=== PATIENT | male | born 1940 | race Caucasian/White ===

== ENCOUNTER 2016-11-09 10:25 | Outpatient (CLI) | payer MEDICARE ==
[2016-11-09 10:56] LABS: Prothrombin Time 21.1 SEC (12.0-14.7)
== END 2016-11-09 10:26 | disposition home or self-care (01) ==
LOC: HPCALD 10:25
PROVIDERS: ATTEND Family Medicine
DX: I48.91 Unspecified atrial fibrillation (principal)
CPT/HCPCS: 36415; 85610

== ENCOUNTER 2016-11-13 08:53 | Emergency (ER) | payer MEDICARE ==
[2016-11-13] MEDS ORDERED: Ondansetron HCl/PF 4 MG/2 ML Vial ONE (09:31)
[2016-11-13 09:53] LABS: #Basophils 0.1 thou/uL (0.0-0.2); #Lymphocytes 1.2 thou/uL (1.20-3.40); #Monocytes 1.2 thou/uL (0.11-0.59); #Neutrophils 11.5 thou/uL (1.40-6.50); %Eosinophils 0.1 % (0.0-10.0); %Monocytes 8.4 % (0.0-10.0); Hematocrit 41.5 % (42.0-52.0); Mean Platelet Volume 7.4 fL (7.4-10.4); Red Blood Cell (RBC) Count 4.77 mill/uL (4.70-6.10)
[2016-11-13 10:06] LABS: Prothrombin Time 22.5 SEC (12.0-14.7)
[2016-11-13 10:07] LABS: ALT (SGPT) 14 U/L (0-55); AST (SGOT) 22 U/L (5-34); Alkaline Phosphatase 33 U/L (40-150); Anion Gap 15 mmol/L (10-20); BUN (Urea Nitrogen) 19 mg/dL (8.4-25.7); Bilirubin, Total 0.6 mg/dL (0.2-1.2); Calc. Creatinine Clearance 0 mL/min (70-130); Calcium 9.7 mg/dL (7.8-10.44); Carbon Dioxide 22 mmol/L (23-31); Chloride 108 mmol/L (98-107); Estimated GFR-MDRD 57; Globulin 2.7 g/dL (2.4-3.5); Protein, Total 6.9 g/dL (5.8-8.1)
[2016-11-13 10:09] LABS: Troponin I 0.019 ng/mL (< 0.028)
--- NOTE | 2016-11-13 10:19 | CT ---
CT BRAIN WITHOUT CONTRAST 11/13/2016 COMPARISON: No prior scan was available for comparison. TECHNIQUE: A noncontrast CT was done, following trauma, in this patient who is on blood thinners. He presents with dizziness and some vomiting. FINDINGS: No parenchymal bleeding or extraaxial hematoma was seen. The ventricles were normal in size for age and atrophy. There was no ventricular shift. Some minimal areas of deep white matter hypolucency suggest minimal chronic ischemic changes. The calvarium appeared intact. The sphenoid sinuses were clear. The mastoid air cells on the left were under-aerated, compared to the right, but this is pr obably chronic. IMPRESSION: No acute intracranial findings. POS: HOME
--- NOTE | 2016-11-13 10:45 | ERRECORD ---
[facility] EMERGENCY RECORD HPI WEAK-DIZZY (09:13 WMEI) CHIEF COMPLAINT: Patient presents for evaluation of dizziness, Patient presents for evaluation of lightheadedness, Denies mental status changes. HISTORIAN: History provided by patient. LOCATION: Symptoms are generalized. QUALITY: Patient is alert and oriented to person, place and time, Alpha coma score is 15. TIME COURSE: Gradual onset of symptoms, 1, days priror to arrival, accidentally fell hitting back of head with no loc awoke yesterday with dizziness and vomited x one dizziness and nausea persist. ASSOCIATED WITH: No associated fever, No associated gait disturbance, No associated headache, Associated with nausea. EXACERBATED BY: Patient's condition exacerbated by movement. RELIEVED BY: Patient's condition relieved by nothing. ROS (09:15 WMEI) CONSTITUTIONAL: Historian denies fatigue, denies fever. EYES: Historian denies eye pain, denies eye discharge. ENT: Historian denies rhinorrhea, denies sinus pain. CARDIOVASCULAR: Historian denies chest pain, no radiation. RESPIRATORY: Historian denies cough, denies shortness of breath. GI: Historian reports anorexia, reports nausea, reports vomiting. GENITOURINARY MALE: Historian denies dysuria, denies urinary urgency. MUSCULOSKELETAL: Historian denies joint stiffness, denies joint swelling. SKIN: Historian denies skin changes, denies skin lesions. NEUROLOGIC: Historian denies confusion, reports dizziness, denies focal weakness, denies mental status changes. ALLERGIC/IMMUNOLOGIC: Historian denies eczema, denies food allergies. PSYCHIATRIC: Historian denies alcohol abuse, denies drug abuse. PAST MEDICAL HISTORY MEDICAL HISTORY: Past medical history includes cardiac history, coronary artery disease, Treated with stent placement, Number of stents: 1. (09:18 WMEI) Past medical history includes cardiac history, coronary artery disease, Past medical history includes history of hyperlipidemia, Past medical history includes history of hypertension. VERIFIED 11/13/16. (09:30 LGIB) MALE SURGICAL HISTORY: cardiac stent, Dental surgery, Surgical history of hernia repair. VERIFIED 11/13/16. (09:30 LGIB) PSYCHIATRIC HISTORY: No previous psychiatric history. (09:30 LGIB) SOCIAL HISTORY: Patient denies alcohol use, Patient denies drug &a-1R&a+25V*p+0X*a0302C*c202B*c15G*c2P*p-0X&a-25V&a+1R Name: Clayton Pierce : 1940 M76 MedRec: [id number] AcctNum: [id number] Prepared: Sat Nov 13, 2016 19:52 by Interface Page 1 of 4 pMD [facility] RECORD use, Patient has no smoking history. (09:30 LGIB) KNOWN ALLERGIES No Known Allergies (Unconfirmed) No Known Drug Allergies (Unconfirmed) CURRENT MEDICATIONS (09:10 AHOO) warfarin: TABLET : Strength - 5 mg : ORAL Patient Dose: 10 mg Oral once a day. lisinopril: TABLET : Strength - 10 mg : ORAL Patient Dose: 10 mg Oral once a day. meTOPROLOL tartrate: TABLET : Strength - 25 mg : ORAL Patient Dose: 25 mg Oral 2 times a day. atorvastatin: TABLET : Strength - 80 mg : ORAL Patient Dose: 80 mg Oral once a day. fenofibrate: CAPSULE : Strength - 50 mg : ORAL Patient Dose: 80 mg Oral once a day. aspirin: TABLET : Strength - 325 mg : ORAL Patient Dose: 325 mg Oral once a day. Biotene: CAPSULE : Strength - 25,000 unit-30 unit : ORAL Patient Dose: 1000 mg Oral once a day (in the morning). VITAL SIGNS VITAL SIGNS: BP: 129/71, Pulse: 90, Resp: 16 (Non-Labored), O2 sat: 98 on Room Air, Time: 11/13/2016 09:06. (09:06 LGIB) Temp: 97.9 (Oral), Time: 11/13/2016 09:10. (09:10 AHOO) Pain: 0, Time: 11/13/2016 09:09. (09:09 AHOO) BP: 115/69, Pulse: 76, Resp: 20, Pain: 0, O2 sat: 100 on Room Air, Time: 11/13/2016 09:54. (09:54 AHOO) BP: 135/77, Pulse: 73, Resp: 22, Temp: 98.2 (Oral), Pain: 0, O2 sat: 100 on Room Air, Time: 11/13/2016 10:23. (10:23 AHOO) PHYSICAL EXAM (09:17 WMEI) CONSTITUTIONAL: Vital signs reviewed, Patient appears non toxic, Patient appears pain free, Patient alert and oriented to person, place and time. HEAD: Head exam included findings of head atraumatic, normocephalic. EYES: Extraocular muscles intact, Conjunctiva normal, Sclera normal. ENT: Ear exam normal, Nose exam normal, Pharynx exam normal. NECK: Neck exam included findings of normal range of motion, Trachea midline. &a-1R&a+25V*p+0X*h1677S*c202B*c15G*c2P*p-0X&a-25V&a+1R Name: Clayton Pierce : 1940 M76 MedRec: [id number] AcctNum: [id number] Prepared: Chuy Nov 13, 2016 19:52 by Interface Page 2 of 4 pMD [facility] RECORD RESPIRATORY CHEST: Breath sounds clear, Chest exam included findings of chest movement symmetrical. CARDIOVASCULAR: Cardiovascular exam included findings of heart rate regular rate and rhythm, Heart sounds normal. ABDOMEN MALE: Abdominal exam included findings of abdomen nontender, Bowel sounds normal, no distension. BACK: Back exam included findings of normal inspection, range of motion normal. UPPER EXTREMITY: Upper extremity exam included findings of inspection normal, Range of motion normal, Motor strength normal. LOWER EXTREMITY: Lower extremity exam included findings of inspection normal, Range of motion normal, Motor strength normal. NEURO: Alpha coma scale 15, Neuro exam findings include patient oriented to person, place and time, Speech normal. LYMPHATIC: Lymphatic exam normal. PSYCHIATRIC: Psychiatric exam included findings of patient oriented to person place and time, Normal affect, Judgment normal, Insight normal. EKG INTERPRETATION (10:22 WMEI) 12 LEAD EKG INTERPRETATION: 12 lead EKG interpreted by Emergency Department Physician at time of study, 12 lead EKG shows normal sinus rhythm, Interpretation: normal EKG, non specific st changes. 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 MEDICATION ADMINISTRATION SUMMARY Drug Name: ondansetron HCl intravenous, Dose Ordered: 4 mg, Route: IV Push, Status: Given, Time: 09:41 11/13/2016, Drug Name: *sodium chloride 0.9 % intravenous, Dose Ordered: 500 mL, Route: IV Fluid Infusion, Status: Given, Time: 09:39 11/13/2016, *Additional information available in notes, Detailed record available in Medication Service section. PROBLEM LIST No recorded problems DIAGNOSIS (10:21 WMEI) FINAL: PRIMARY: dizziness. PRESCRIPTION No recorded prescriptions DISPOSITION PATIENT: Disposition Type: Discharge, Disposition: *Discharge Home. (10:21 WMEI) &a-1R&a+25V*p+0X*p1147O*c202B*c15G*c2P*p-0X&a-25V&a+1R Name: Clayton Pierce : 1940 M76 MedRec: [id number] AcctNum: [id number] Prepared: Chuy Nov 13, 2016 19:52 by Interface Page 3 of 4 pMD [facility] RECORD Patient left the department. (10:38 OO) Cummings: AHOO=ELZA Moya, January LGIB=FREDDY Zeng, Neeta WMEI=DO Menendez William &a-1R&a+25V*p+0X*x2538T*c202B*c15G*c2P*p-0X&a-25V&a+1R Name: Clayton Pierce : 1940 M76 MedRec: [id number] AcctNum: [id number] Prepared: Chuy Nov 13, 2016 19:52 by Interface Page 4 of 4 pMD MTDD
--- NOTE | 2016-11-13 10:51 | PICIS ---
[facility] EMERGENCY RECORD TRIAGE (09:02 LGIB) TRIAGE NOTES: DIZZINESS SINCE YESTERDAY. YESTERDAY WAS VOMITING. (09:02 LGIB) PATIENT: NAME: Clayton Pierce, AGE: 76, GENDER: male, : Sun 1940, TIME OF GREET: Sat Nov 13, 2016 08:54, PREFERRED LANGUAGE: Swazi, ETHNICITY: Not or , ECODE BILLING MAP: [facility], SSN: [id number], Zip Code: [address], KG WEIGHT: 71.21, PHONE: , , , PERSON ID: [id number], PAYMENT: [employer], PCP: MD Dominguez Kyle. (09:02 LGIB) COMPLAINT: DIZZINESS. (09:02 LGIB) ADMISSION: URGENCY: 3 Urgent, ADMISSION SOURCE: Home, TRANSPORT: CAR, BED: ER -03. (09:02 LGIB) SIRS SCORING: Heart Rate 55-109 (0), Temp range 96.8-101.1 (0), respiratory rate 12-24 (0), Total SIRS Score 0. (09:30 LGIB) PROVIDERS: TRIAGE NURSE: Neeta Zeng RN. (09:02 LGIB) PREVIOUS VISIT ALLERGIES: No Known Drug Allergies. (09:02 LGIB) No Known Drug Allergies. (09:30 LGIB) KNOWN ALLERGIES No Known Allergies (Unconfirmed) No Known Drug Allergies (Unconfirmed) CURRENT MEDICATIONS (09:10 OO) warfarin: TABLET : Strength - 5 mg : ORAL Patient Dose: 10 mg Oral once a day. lisinopril: TABLET : Strength - 10 mg : ORAL Patient Dose: 10 mg Oral once a day. meTOPROLOL tartrate: TABLET : Strength - 25 mg : ORAL Patient Dose: 25 mg Oral 2 times a day. atorvastatin: TABLET : Strength - 80 mg : ORAL Patient Dose: 80 mg Oral once a day. fenofibrate: CAPSULE : Strength - 50 mg : ORAL Patient Dose: 80 mg Oral once a day. aspirin: TABLET : Strength - 325 mg : ORAL Patient Dose: 325 mg Oral once a day. Biotene: CAPSULE : Strength - 25,000 unit-30 unit : ORAL Patient Dose: 1000 mg Oral once a day (in the morning). VITAL SIGNS VITAL SIGNS: BP: 129/71, Pulse: 90, Resp: 16 (Non-Labored), O2 sat: 98 on Room Air, Time: 11/13/2016 09:06. (09:06 LGIB) &a-1R&a+25V*p+0X*x1222W*c202B*c15G*c2P*p-0X&a-25V&a+1R Name: Clayton Pierce : 1940 M76 MedRec: [id number] AcctNum: [id number] Prepared: Sat Nov 13, 2016 19:52 by Interface Page 1 of 8 pMD [facility] EMERGENCY RECORD Temp: 97.9 (Oral), Time: 11/13/2016 09:10. (09:10 AHOO) Pain: 0, Time: 11/13/2016 09:09. (09:09 AHOO) BP: 115/69, Pulse: 76, Resp: 20, Pain: 0, O2 sat: 100 on Room Air, Time: 11/13/2016 09:54. (09:54 AHOO) BP: 135/77, Pulse: 73, Resp: 22, Temp: 98.2 (Oral), Pain: 0, O2 sat: 100 on Room Air, Time: 11/13/2016 10:23. (10:23 AHOO) NURSING ASSESSMENT: HEAD-TO-TOE (09:20 LGIB) CONSTITUTIONAL: Complex assessment performed, Patient arrives, via hospital wheelchair, Gait steady, History obtained from patient, Patient appears comfortable, Patient cooperative, Patient alert, Oriented to person, place and time, Skin warm, Skin dry, Skin normal in color, Mucous membranes pink, Mucous membranes, LIPS AND TONGUE SLIGHTLY DRY, Patient is well-groomed, Patient complains of DIZZINESS, REPORTING DIZZINES SINCE YESTERDAY MORNING. PT ALSO REPORTS VOMITING YESTERDAY. PT STATES HE DID HAVE AN EPISODE WHERE HE WAS UNSTEADY ON A LADDER, TRIED TO CATCH HIS BALANCE AND HIT HIS HEAD ON A PIECE OF TIN. DENIES FALLING TO THE GROUND. PT ON WARFARIN. AOX4, NAD. PAIN: Patient rates pain as 0 out of 10. SKIN: Skin assessment findings include skin warm, Skin dry, Skin normal in color. NEURO: Pupils equally round and reactive to light, Left pupil 3 mm in size, Right pupil 3 mm in size, Able to close eyes, Face symmetrical, Speech normal, Hand grasps equal, Upper extremity strength strong, Lower extremity strength strong, Associated with dizziness described as, feeling unsteady, UNSTEADY WHEN STANDING. ENT: Ear assessment findings include ear normal to inspection, Nasal assessment findings include nose normal to inspection, Mouth and throat assessment findings include mouth inspection normal. RESPIRATORY/CHEST: Breath sounds clear, Respiratory assessment findings include respiratory effort easy, Respirations regular, Conversing normally, Neck and chest exam findings include trachea midline, Chest expansion equal, Chest movement symmetrical, no signs of distress, no retractions noted, no cyanosis. CARDIOVASCULAR: Cardiovascular assessment findings include heart rate normal, Left radial pulse +3(easily palpated, considered normal), Right radial pulse +3(easily palpated, considered normal), Left dorsalis pedis pulse +3(easily palpated, considered normal), Right dorsalis pedis pulse +3(easily palpated, considered normal). ABDOMEN: Abdomen assessment findings include abdomen symmetrical, Abdomen soft, non-tender, Bowel sound normal, Associated with nausea, no associated vomiting, no associated diarrhea, Notes: NO VOMITING TODAY. SAFETY: Side rails up, Cart/Stretcher in lowest position, Call light within reach, Hospital ID band on. NURSING PROCEDURE: DISCHARGE NOTE (10:31 AHOO) DISCHARGE: Patient discharged to home, ambulating with &a-1R&a+25V*p+0X*o5488H*c202B*c15G*c2P*p-0X&a-25V&a+1R Name: Clayton Pierce : 1940 M76 MedRec: [id number] AcctNum: [id number] Prepared: Sat Nov 13, 2016 19:52 by Interface Page 2 of 8 pMD [facility] EMERGENCY RECORD walker, family driving, accompanied by other family member, Summary of Care printed/ provided, Transition record given to patient, Discharge instructions given to patient, Above person(s) verbalized understanding of discharge instructions and follow-up care, Patient treated and evaluated by physician. NURSING PROCEDURE: EKG CHART (09:12 AHOO) PATIENT IDENTIFIER: Patient actively involved in identification process, Patient's identity verified by patient stating name, Patient's identity verified by patient stating date, Patient's identity verified by hospital ID danitza. EKG: EKG indicated for DIZZINESS, 12 lead EKG performed on the left chest, done by TARA LEAL LVN, first EKG. FOLLOW-UP: After procedure, EKG for interpretation given to Dr. DR MENENDEZ. NURSING PROCEDURE: IV IV SITE 1: IV therapy indicated for hydration, IV therapy indicated for medication administration, IV established, to the right antecubital, using a 20 gauge catheter, in one attempt, Saline lock established, Flushed with normal saline (mls): 10, Labs drawn at time of placement, labeled in the presence of the patient and sent to lab. (09:40 LGIB) FOLLOW-UP SITE 1: After procedure, 2x2 dressing applied, After procedure, no drainage at IV site, After procedure, no swelling at IV site, After procedure, no redness at IV site, IV discontinued, due to patient being discharged, catheter intact. (10:28 AHOO) NURSING PROCEDURE: NURSE NOTES (10:09 LGIB) NURSES NOTES: Notes: NO NEEDS AT THIS TIME, IV FLUIDS INFUSING. NAD. NURSING PROCEDURE: TRANSPORT TO TESTS TRANSPORT TO TESTS: Patient transported to CT scan, via wheelchair, Accompanied by x-ray install and repair technician. (09:21 LGIB) FOLLOW-UP: After procedure, patient returned to emergency department. (09:35 LGIB) ORDER DETAILS Order Name: Cardiac Profile w/CKMB & Troponin - I, Status: Active, Time: 09:12 11/13/2016, User: JANNET, - Ordered for: DO Menendez William, - Entered by: DO Menendez William - Sat Nov 13, 2016 09:12, - Quantity: 1, Order Name: CBC with Differential, Status: Active, Time: 09:12 11/13/2016, User: JANNET, - Ordered for: DO Menendez William, - Entered by: DO Menendez William - Sat Nov 13, 2016 09:12, - Quantity: 1, &a-1R&a+25V*p+0X*t0238Z*c202B*c15G*c2P*p-0X&a-25V&a+1R Name: Clayton Pierce : 1940 M76 MedRec: [id number] AcctNum: [id number] Prepared: Sat Nov 13, 2016 19:52 by Interface Page 3 of 8 D [facility] EMERGENCY RECORD Order Name: Comprehensive Metabolic Panel, Status: Active, Time: 09:12 11/13/2016, User: JANNET, - Ordered for: DO Menendez William, - Entered by: DO Menendez William - Sat Nov 13, 2016 09:12, - Quantity: 1, Order Name: CT Brain WO Con, Status: Active, Time: 09:12 11/13/2016, User: JANNET, - Ordered for: DO Menendez William, - Entered by: DO Menendez William - [facility] Nov 13, 2016 09:12, - Quantity: 1, Order Name: EKG 12 Lead in Emergency Room, Status: Active, Time: 09:12 11/13/2016, User: JANNET, - Ordered for: DO Menendez William, - Entered by: DO Menendez William - [facility] Nov 13, 2016 09:12, - Quantity: 1, Order Name: Protime with INR, Status: Active, Time: 09:12 11/13/2016, User: JANNET, - Ordered for: DO Menendez William, - Entered by: DO Menendez William - [facility] Nov 13, 2016 09:12, - Quantity: 1, Order Name: SALINE LOCK, Status: Done, Time: 09:45 11/13/2016, User: TAMMY, - Ordered for: DO Menendez William, - Entered by: DO Menendez William - [facility] Nov 13, 2016 09:12, - Quantity: 1. MEDICATION ADMINISTRATION SUMMARY Drug Name: ondansetron HCl intravenous, Dose Ordered: 4 mg, Route: IV Push, Status: Given, Time: 09:41 11/13/2016, Drug Name: *sodium chloride 0.9 % intravenous, Dose Ordered: 500 mL, Route: IV Fluid Infusion, Status: Given, Time: 09:39 11/13/2016, *Additional information available in notes, Detailed record available in Medication Service section. MEDICATION SERVICE ondansetron HCl intravenous: Order: ondansetron HCl intravenous (ondansetron HCl) - Dose: 4 mg : IV Push Schedule: Now Ordered by: Erich Menendez DO Entered by: Erich Menendez DO Sat Nov 13, 2016 09:30 , Acknowledged by: Tara Leal LVN Sat Nov 13, 2016 09:31 Documented as given by: Tara Leal LVN Sat Nov 13, 2016 09:41 Patient, Medication, Dose, Route and Time verified prior to administration. Amount given: 4MG, IV SITE #1 IVP, initial medication, Slowly, Awake and alert- acceptable, Catheter placement confirmed via flush prior to administration, IV site without signs or symptoms of infiltration during medication administration, No swelling during administration, No drainage during administration, IV flushed after administration, &a-1R&a+25V*p+0X*o4477X*c202B*c15G*c2P*p-0X&a-25V&a+1R Name: Clayton Pierce : 1940 M76 MedRec: [id number] AcctNum: [id number] Prepared: Sat Nov 13, 2016 19:52 by Interface Page 4 of 8 pMD [facility] EMERGENCY RECORD Correct patient, time, route, dose and medication confirmed prior to administration, Patient advised of actions and side-effects prior to administration, Allergies confirmed and medications reviewed prior to administration, Patient in position of comfort, Side rails up, Cart in lowest position, Family at bedside. : Follow Up : Response assessment performed, No signs or symptoms of allergic reaction noted, Decreased nausea, _IV SITE #1:_. (10:28 [facility]) sodium chloride 0.9 % intravenous: Order: sodium chloride 0.9 % intravenous (0.9 % sodium chloride) - Dose: 500 mL : IV Fluid Infusion Notes: (Bolus) Ordered by: Erich Menendez DO Entered by: Erich Menendez DO Sat Nov 13, 2016 09:19 , Acknowledged by: Neeta Zeng RN Sat Nov 13, 2016 09:21 Documented as given by: Tara Leal LVN Sat Nov 13, 2016 09:39 Patient, Medication, Dose, Route and Time verified prior to administration. Amount given: 500ML, IV SITE #1 IV fluids established for hydration, IV SITE #1 into right antecubital, IV SITE #1 1st bag hung, IV SITE #1 bolus of 500 ml established, via gravity tubing, Awake and alert- acceptable, Catheter placement confirmed via flush prior to administration, IV site without signs or symptoms of infiltration during medication administration, No swelling during administration, No drainage during administration, IV flushed after administration, Correct patient, time, route, dose and medication confirmed prior to administration, Patient advised of actions and side-effects prior to administration, Allergies confirmed and medications reviewed prior to administration, Patient in position of comfort, Side rails up, Cart in lowest position, Family at bedside. : Follow Up : Response assessment performed, No signs or symptoms of allergic reaction noted, _IV SITE #1:_, IV fluid infusion discontinued, on Sat Nov 13, 2016 10:28, 50 minutes, ., Total amount infused: 500ML, IV Discontinued with catheter intact. (10:28 AHOO) HPI WEAK-DIZZY (09:13 WMEI) CHIEF COMPLAINT: Patient presents for evaluation of dizziness, Patient presents for evaluation of lightheadedness, Denies mental status changes. HISTORIAN: History provided by patient. LOCATION: Symptoms are generalized. QUALITY: Patient is alert and oriented to person, place and time, Mitesh coma score is 15. TIME COURSE: Gradual onset of symptoms, 1, days priror to arrival, accidentally fell hitting back of head with no loc awoke yesterday with dizziness and vomited x one dizziness and nausea persist. ASSOCIATED WITH: No associated fever, No associated gait disturbance, No associated headache, Associated with nausea. EXACERBATED BY: Patient's condition exacerbated by movement. &a-1R&a+25V*p+0X*n2892Y*c202B*c15G*c2P*p-0X&a-25V&a+1R Name: Clayton Pierce : 1940 M76 MedRec: [id number] AcctNum: [id number] Prepared: Sat Nov 13, 2016 19:52 by Interface Page 5 of 8 pMD [facility] EMERGENCY RECORD RELIEVED BY: Patient's condition relieved by nothing. ROS (09:15 WMEI) CONSTITUTIONAL: Historian denies fatigue, denies fever. EYES: Historian denies eye pain, denies eye discharge. ENT: Historian denies rhinorrhea, denies sinus pain. CARDIOVASCULAR: Historian denies chest pain, no radiation. RESPIRATORY: Historian denies cough, denies shortness of breath. GI: Historian reports anorexia, reports nausea, reports vomiting. GENITOURINARY MALE: Historian denies dysuria, denies urinary urgency. MUSCULOSKELETAL: Historian denies joint stiffness, denies joint swelling. SKIN: Historian denies skin changes, denies skin lesions. NEUROLOGIC: Historian denies confusion, reports dizziness, denies focal weakness, denies mental status changes. ALLERGIC/IMMUNOLOGIC: Historian denies eczema, denies food allergies. PSYCHIATRIC: Historian denies alcohol abuse, denies drug abuse. PAST MEDICAL HISTORY MEDICAL HISTORY: Past medical history includes cardiac history, coronary artery disease, Treated with stent placement, Number of stents: 1. (09:18 WMEI) Past medical history includes cardiac history, coronary artery disease, Past medical history includes history of hyperlipidemia, Past medical history includes history of hypertension. VERIFIED 11/13/16. (09:30 LGIB) MALE SURGICAL HISTORY: cardiac stent, Dental surgery, Surgical history of hernia repair. VERIFIED 11/13/16. (09:30 LGIB) PSYCHIATRIC HISTORY: No previous psychiatric history. (09:30 LGIB) SOCIAL HISTORY: Patient denies alcohol use, Patient denies drug use, Patient has no smoking history. (09:30 LGIB) PHYSICAL EXAM (09:17 WMEI) CONSTITUTIONAL: Vital signs reviewed, Patient appears non toxic, Patient appears pain free, Patient alert and oriented to person, place and time. HEAD: Head exam included findings of head atraumatic, normocephalic. EYES: Extraocular muscles intact, Conjunctiva normal, Sclera normal. ENT: Ear exam normal, Nose exam normal, Pharynx exam normal. NECK: Neck exam included findings of normal range of motion, Trachea midline. RESPIRATORY CHEST: Breath sounds clear, Chest exam included &a-1R&a+25V*p+0X*a1849N*c202B*c15G*c2P*p-0X&a-25V&a+1R Name: Clayton Pierce : 1940 M76 MedRec: [id number] AcctNum: [id number] Prepared: Chuy Nov 13, 2016 19:52 by Interface Page 6 of 8 pMD [facility] EMERGENCY RECORD findings of chest movement symmetrical. CARDIOVASCULAR: Cardiovascular exam included findings of heart rate regular rate and rhythm, Heart sounds normal. ABDOMEN MALE: Abdominal exam included findings of abdomen nontender, Bowel sounds normal, no distension. BACK: Back exam included findings of normal inspection, range of motion normal. UPPER EXTREMITY: Upper extremity exam included findings of inspection normal, Range of motion normal, Motor strength normal. LOWER EXTREMITY: Lower extremity exam included findings of inspection normal, Range of motion normal, Motor strength normal. NEURO: Mitesh coma scale 15, Neuro exam findings include patient oriented to person, place and time, Speech normal. LYMPHATIC: Lymphatic exam normal. PSYCHIATRIC: Psychiatric exam included findings of patient oriented to person place and time, Normal affect, Judgment normal, Insight normal. LAB INTERPRETATION (10:22 WMEI) INTERPRETATION: I reviewed the lab results, CBC abnormal, White blood cell count elevated, Cardiac enzymes normal. EVENTS TRANSFER: Triage to Emergency Emergency Room -03. (Sat Nov 13, 2016 09:02 LGIB) Removed from Emergency Emergency Room -03. (10:38 AHOO) RADIOLOGYINTERPRETATION (10:23 WMEI) INTERACTIVE MEDIA MARKETING SPECIALIST: Preliminary review of CT scans by, Radiologist, normal head ct. EKG INTERPRETATION (10:22 WMEI) 12 LEAD EKG INTERPRETATION: 12 lead EKG interpreted by Emergency Department Physician at time of study, 12 lead EKG shows normal sinus rhythm, Interpretation: normal EKG, non specific st changes. PROBLEM LIST No recorded problems DIAGNOSIS (10:21 WMEI) FINAL: PRIMARY: dizziness. DISPOSITION PATIENT: Disposition Type: Discharge, Disposition: *Discharge Home. (10:21 WMEI) Patient left the department. (10:38 AHOO) INSTRUCTION (10:21 WMEI) &a-1R&a+25V*p+0X*q1660Y*c202B*c15G*c2P*p-0X&a-25V&a+1R Name: Clayton Pierce : 1940 M76 MedRec: [id number] AcctNum: [id number] Prepared: Sat Nov 13, 2016 19:52 by Interface Page 7 of 8 pMD [facility] EMERGENCY RECORD DISCHARGE: DIZZINESS, UNK CAUSE. FOLLOWUP: [facility], [address] [place], [place] [id number], . SPECIAL: Follow-up with your primary physician as needed. PRESCRIPTION No recorded prescriptions IMAGING *EKG: Image captured from scanner. (10:11 AHOO) *DISCHARGE INSTRUCTIONS RECEIPT: Image captured from scanner. (10:37 AHOO) *SUPPLY CHARGE SHEET: Image captured from scanner. (10:37 AHOO) ADMIN (19:48 [facility]) DIGITAL SIGNATURE: DO Menendez William. Cummings: AHOO=ELZA Leal, January LGIB=FREDDY Zeng, Neeta WMEI=DO Menendez William &a-1R&a+25V*p+0X*v6400M*c202B*c15G*c2P*p-0X&a-25V&a+1R Name: Clayton Pierce : 1940 M76 MedRec: [id number] AcctNum: [id number] Prepared: Chuy Nov 13, 2016 19:52 by Interface Page 8 of 8 pMD MTDD
== END 2016-11-13 10:31 | disposition home or self-care (01) ==
LOC: BURERS 08:53
DX: R42 Dizziness and giddiness (principal); I25.10 Atherosclerotic heart disease of native coronary artery without angina pectoris; I10 Essential (primary) hypertension; E78.5 Hyperlipidemia, unspecified; Z79.01 Long term (current) use of anticoagulants; Z79.82 Long term (current) use of aspirin; Z79.899 Other long term (current) drug therapy
CPT/HCPCS: 70450; 80053; 82553; 84484; 85025; 85610; 93005; 96361; 96374; J2405

== ENCOUNTER 2016-12-14 10:11 | Outpatient (CLI) | payer MEDICARE ==
[2016-12-14 10:56] LABS: Prothrombin Time 27.9 SEC (12.0-14.7)
== END 2016-12-14 10:12 | disposition home or self-care (01) ==
LOC: HPCALD 10:11
PROVIDERS: ATTEND Family Medicine
DX: I48.91 Unspecified atrial fibrillation (principal)
CPT/HCPCS: 36415; 85610

== ENCOUNTER 2017-01-12 10:54 | Outpatient (CLI) | payer MEDICARE ==
[2017-01-12 11:45] LABS: INR-International Normal Ratio 2.5; Prothrombin Time 26.5 SEC (12.0-14.7)
== END 2017-01-12 10:55 | disposition home or self-care (01) ==
LOC: HPCALD 10:54
PROVIDERS: ATTEND Family Medicine
DX: I48.91 Unspecified atrial fibrillation (principal)
CPT/HCPCS: 36415; 85610

== ENCOUNTER 2017-02-10 09:23 | Outpatient (CLI) | payer MEDICARE ==
[2017-02-10 11:11] LABS: INR-International Normal Ratio 3.1; Prothrombin Time 33.2 SEC (12.0-14.7)
== END 2017-02-10 09:24 | disposition home or self-care (01) ==
LOC: HPCALD 09:23
PROVIDERS: ATTEND Family Medicine
DX: I48.91 Unspecified atrial fibrillation (principal)
CPT/HCPCS: 36415; 85610

== ENCOUNTER 2017-03-09 10:35 | Outpatient (CLI) | payer MEDICARE ==
[2017-03-09 11:56] LABS: INR-International Normal Ratio 2.2; Prothrombin Time 25.4 SEC (12.0-14.7)
== END 2017-03-09 10:36 | disposition home or self-care (01) ==
LOC: HPCALD 10:35
PROVIDERS: ATTEND Family Medicine
DX: I48.91 Unspecified atrial fibrillation (principal)
CPT/HCPCS: 36415; 85610

== ENCOUNTER 2017-04-13 09:09 | Outpatient (CLI) | payer MEDICARE ==
[2017-04-13 10:53] LABS: INR-International Normal Ratio 3.3; Prothrombin Time 35.4 SEC (12.0-14.7)
== END 2017-04-13 09:10 | disposition home or self-care (01) ==
LOC: HPCALD 09:09
PROVIDERS: ATTEND Family Medicine
DX: I48.91 Unspecified atrial fibrillation (principal)
CPT/HCPCS: 36415; 85610

== ENCOUNTER 2017-05-17 10:22 | Outpatient (CLI) | payer MEDICARE ==
[2017-05-17 11:39] LABS: INR-International Normal Ratio 2.7; Prothrombin Time 29.4 SEC (12.0-14.7)
== END 2017-05-17 10:23 | disposition home or self-care (01) ==
LOC: HPCALD 10:22
PROVIDERS: ATTEND Family Medicine
DX: I48.91 Unspecified atrial fibrillation (principal)
CPT/HCPCS: 36415; 85610

== ENCOUNTER 2017-06-09 10:57 | Outpatient (CLI) | payer MEDICARE ==
[2017-06-09 11:21] LABS: INR-International Normal Ratio 3.4; Prothrombin Time 35.7 SEC (12.0-14.7)
== END 2017-06-09 10:58 | disposition home or self-care (01) ==
LOC: HPCALD 10:57
PROVIDERS: ATTEND Family Medicine
DX: I48.91 Unspecified atrial fibrillation (principal)
CPT/HCPCS: 36415; 85610

== ENCOUNTER 2017-07-12 11:50 | Outpatient (CLI) | payer MEDICARE ==
[2017-07-12 12:33] LABS: INR-International Normal Ratio 2.7; Prothrombin Time 30.1 SEC (12.0-14.7)
== END 2017-07-12 11:51 | disposition home or self-care (01) ==
LOC: HPCALD 11:50
PROVIDERS: ATTEND Family Medicine
DX: I48.91 Unspecified atrial fibrillation (principal)
CPT/HCPCS: 85610